=== PATIENT | female | born 1980 | race Caucasian/White ===

== ENCOUNTER 2024-12-02 22:42 | Emergency (ER) | payer MEDICAID ==
[~2024-12-02] VITALS: Ht 154.9 cm; Wt 76.4 kg
[2024-12-02 22:43] VITALS: BP 125/79; PULSE 86; O2SAT 98
--- NOTE | 2024-12-02 23:03 | Physician Documentation ---
History of Present Illness ~ Chief Complaint: Breast pain Stated Complaint: CHEST PAIN Time Seen by MD: 23:01 [facility] 43-year-old female with a history of diabetes presents to the emergency department reporting that she has had several days of left breast pain with redness. She denies chills or fevers, but does endorse nausea and body aches. She reports that although she is diabetic, she has been out of her medication, and is currently not taking anything for diabetes. Medication Reconciliation Allergies: Coded Allergies: No Known Allergies (Unverified , 12/02/24) Scheduled Naproxen (Naproxen), 1 TAB PO Q12H Sulfamethoxazole/Trimethoprim (Bactrim Ds Tablet), 1 TAB PO Q12H Review of Systems ROS As stated above in the HPI, otherwise all systems are reviewed and negative. Physical Exam Vital Signs: Temperature: 98.1, Source: Oral, Heart Rate: 86, Respiratory Rate: 17, BP: 125/79, Pulse Oximetry: 98, Weight: 76.360 General Appearance General: Alert, no apparent distress. HEENT: PERRL, EOMI, no injection, moist mucous membranes. Neck: Full range of motion. Respiratory: Lungs clear, no respiratory distress. Chest: No accessory muscle use. Breast: Left breast redness and abscess at 11 o'clock position. Nipple is retracted due to erythema/swelling to site. Cardiovascular: Regular rate and rhythm, no murmurs. Gastrointestinal: Soft, nontender, nondistended. Bowels sounds present. Extremities: Normal range of motion, no deformity. Neurologic: Oriented x4. Psychiatric: Normal mood and affect. Skin: Normal color, warm and dry. No edema, no ecchymosis. Procedures Procedures Left breast cleansed with betadine and then aspiration of abscess attempted as follows: 5 ml of 1% plain lidocaine injected around abscess area. #18 gauge needle utilized to attempt to aspirate but only blood returned. No purulence. Incision and drainage: Status post informed verbal consent patient was sterilely cleaned and draped. An additional 5 cc of lidocaine with epinephrine was used to anesthetize breast. Using a 11. Blade an incision and drainage was performed with 3 cc of purulent discharge. Cultures sent of the purulent discharge. Abscess was then de loculated and bandage placed. Total time of procedure 10 minutes Progress Results/Orders Results/Orders Orders - DOUGLAS WESLEY MD Culture Body Fluid Order (12/03/24 00:58) Cult (Aer) Routine C&S+Gram St (12/03/24 00:55) Completed Orders - DOUGLAS WESLEY MD Normal Saline 1000ml (Sodium Chloride 10 (12/03/24 01:20) Insulin Regular, Human (Humulin R 10 Uni (12/03/24 01:20) Medications Received in ER Medications (Trade) Dose Ordered Sig/Jo Route PRN Reason Start Time Stop Time Status Last Admin Dose Admin (Toradol inj. 30mg/ml) 30 mg ONCE ONCE IM 12/02/24 23:20 12/02/24 23:23 DC 12/02/24 23:40 30 MG (Zofran ODT tablet) 4 mg ONCE ONCE PO 12/02/24 23:20 12/02/24 23:23 DC 12/02/24 23:39 4 MG (Boostrix vaccine syringe) 0.5 ml ONCE ONCE IMVAC 12/02/24 23:35 12/02/24 23:36 DC 12/03/24 00:09 0.5 ML (Septra DS tab) 1 tab ONCE ONCE PO 12/02/24 23:50 12/02/24 23:51 DC 12/03/24 00:08 1 TAB ([place] 5/325mg tablet) 1 tab ONCE ONCE PO 12/03/24 00:05 12/03/24 00:06 DC 12/03/24 00:11 1 TAB Sodium Chloride 1,000 ml @ 1,000 mls/hr ONCE ONCE IV 12/03/24 01:20 12/03/24 02:19 DC 12/03/24 02:11 1,000 MLS/HR (HumuLIN R 10 units per 0.1 ML syringe) 10 units ONCE ONCE IV 12/03/24 01:20 12/03/24 01:21 DC 12/03/24 02:11 10 UNITS Vital Signs 12/02/24 12/02/24 12/03/24 12/03/24 22:43 23:40 00:11 01:03 Temp 98.1 98.1 Pulse 86 Resp 17 18 18 B/P (MAP) 125/79 Pulse Ox 98 Laboratory Tests Test 12/02/24 23:31 12/03/24 03:05 White Blood Count 12.2 H Red Blood Count 4.47 Hemoglobin 13.7 Hematocrit 39.5 Mean Corpuscular Volume 88.4 Mean Corpuscular Hemoglobin 30.6 Mean Corpuscular Hemoglobin Concent 34.6 Red Cell Distribution Width 13.2 Platelet Count 410 Mean Platelet Volume 8.0 Neutrophils (%) (Auto) 65.6 Lymphocytes (%) (Auto) 27.3 Monocytes (%) (Auto) 5.0 Eosinophils (%) (Auto) 1.3 Basophils (%) (Auto) 0.8 Neutrophils # (Auto) 8.0 H Lymphocytes # (Auto) 3.3 Monocytes # (Auto) 0.6 Eosinophils # (Auto) 0.2 Basophils # (Auto) 0.1 CBC Comment Sodium Level 131 L Potassium Level 4.0 Chloride Level 96 L Carbon Dioxide Level 27.2 Anion Gap 8 Blood Urea Nitrogen 15 Creatinine 0.70 Estimated GFR/1.73 m2 > 90 BUN/Creatinine Ratio 21.4 H Glucose Level 430 *H Lactic Acid Level 1.0 Calcium Level 8.5 Total Bilirubin 0.2 Aspartate Amino Transf (AST/SGOT) 46 H Alanine Aminotransferase (ALT/SGPT) 104 H Alkaline Phosphatase 266 H Total Protein 7.1 Albumin 3.2 L Globulin 3.9 Albumin/Globulin Ratio 0.8 L Procalcitonin < 0.05 Chemistry Comments Glucometer 164 H Microbiology Date/Time Source Procedure Growth Status 12/02/24 23:31 Blood Arm Right Blood Culture - Preliminary NEGATIVE (LESS THAN 24 HOURS) Resulted Medical Decision Making Findings Patient presented to the emergency room with chief complaint of breast abscess. Differentials include but are not limited to abscess, cellulitis, breast engorgement, hematoma therefore emergent labs ordered. Mild elevation of white blood cell count and noted hyperglycemia consistent with infectious process. Patient is status post incision and drainage along with initiation of IV antibiotics and improvement of patient's blood sugars. I believe she will do well on an outpatient basis. ER precautions discussed. Differential Dx:Considerations: Include: Breast abscess, Breast engorgement, Breast mass, Cancer, Cellulitis Departure Disposition: HOME / SELF CARE / HOMELESS Impression: Primary Impression: Breast abscess Condition: Stable Discharge Instructions: Abscess, Care After, Mastitis Additional Instructions: Return to the emergency room for worsening of symptoms Take the antibiotics as prescribed. Use the Naproxen as needed for pain. Referrals: NO PRIMARY CARE PROVIDER (PCP) Prescriptions Naproxen (Naproxen) 500 Mg Tablet 1 TAB PO Q12H, #20 TAB Prov: MALINA BARRIGA NP 12/02/24 Sulfamethoxazole/Trimethoprim (Bactrim Ds Tablet) 800 Mg-160 Mg Tablet 1 TAB PO Q12H for 7 Days, #14 TAB Prov: MALINA BARRIGA NP 12/02/24 Education Educated: Patient Educated regarding: diagnosis, treatment, prognosis, need for follow up Signature Scribe Signature: no scribe Attestation: The note accurately reflects work and decisions made by me.Douglas Wesley MD 12/03/24 00:56 The note accurately reflects work and decisions made by me.Malina Diaz NP 12/02/24 23:24 MALINA BARRIGA NP Dec 02, 2024 23:03 DOUGLAS WESLEY MD Dec 03, 2024 00:57
[2024-12-02] MEDS ORDERED: SULF1TAB49 PO (23:36)
[2024-12-02] MEDS ORDERED: NAPR-56 PO (23:36)
[2024-12-02 23:39] LABS: BASOPHILS # (AUTO) 0.1 X10'3 (0-0.2); BASOPHILS % (AUTO) 0.8 % (0-1); EOSINOPHILS # (AUTO) 0.2 X10'3 (0-0.9); EOSINOPHILS % (AUTO) 1.3 % (0-6); HEMATOCRIT 39.5 % (35.0-45.0); HEMOGLOBIN 13.7 g/dl (12.0-16.0); LYMPHOCYTES # (AUTO) 3.3 X10'3 (1.1-4.8); LYMPHOCYTES % (AUTO) 27.3 % (21-51); MEAN CORPUSCULAR HEMOGLOBIN 30.6 PG (27.0-31.0); MEAN CORPUSCULAR HGB CONC 34.6 g/dL (33.0-36.5); MEAN CORPUSCULAR VOLUME 88.4 FL (78-98); MONOCYTES # (AUTO) 0.6 X10'3 (0-0.9); NEUTROPHILS % (AUTO) 65.6 % (42-75); PLATELET COUNT 410 X10'3 (140-440); RED BLOOD COUNT 4.47 X10'6 (4.20-5.60); RED CELL DISTRIBUTION WIDTH 13.2 % (11.5-14.5); WHITE BLOOD COUNT 12.2 X10'3 (4.5-11.0)
[2024-12-02] MEDS: ondansetron 4mg rapidly disintigrating tab PO ONE (23:39)
[2024-12-02] MEDS: ketorolac trometh 30MG/ML vial 30 MG/ML VIAL IM ONE (23:40)
[2024-12-03] LABS: ALANINE AMINOTRANSFERASE 104 U/L (12-78); ALBUMIN 3.2 G/DL (3.4-5.0); ALBUMIN/GLOBULIN RATIO 0.8 (1.1-1.5); ALKALINE PHOSPHATASE 266 IU/L (46-116); ANION GAP 8 (8-16); ASPARTATE AMINO TRANSFERASE 46 U/L (10-37); BILIRUBIN,TOTAL 0.2 MG/DL (0.1-1.0); BLOOD UREA NITROGEN 15 MG/DL (7-18); BUN/CREATININE RATIO 21.4 (10.0-20.0); CALCIUM 8.5 MG/DL (8.5-10.1); CHLORIDE 96 MMOL/L (99-107); SODIUM 131 MMOL/L (135-145); TOTAL CARBON DIOXIDE 27.2 MMOL/L (24-32); TOTAL PROTEIN 7.1 G/DL (6.4-8.2); eCRCL 79 ML/MIN; eGFR > 90 ML/MIN
[2024-12-03] MEDS: LIDOcaine 1%/PF 5ML 10 MG/ML VIAL IJ ONE
[2024-12-03 00:04] LABS: GLUCOSE 430 MG/DL (70-104)
[2024-12-03] MEDS: sulfamethoxazole/trimethoprim DS (800/160mg) tablet PO ONE (00:08)
[2024-12-03] MEDS: TETanus/Pertussis (Acell)/Diphther VAC/PF (Tdap-Adult) 0.5ml syringe IMVAC ONE (00:09)
[2024-12-03 00:11] VITALS: RESP 18
[2024-12-03] MEDS: HYDROcodone/acetaminophen 5mg/325mg tablet PO ONE (00:11)
[2024-12-03] MEDS: LIDOcaine 1% W/epiNEPHrine 1:100,000 20ml vial SQ ONE (00:31)
[2024-12-03 01:03] VITALS: TEMP 98.1
[2024-12-03] MEDS: insulin regular, human 10 units/0.1 ml syringe IV ONE (02:11)
[2024-12-03] MEDS: normal saline 1000ml 1,000 ML IV ONE (02:11)
== END 2024-12-03 03:09 | disposition home or self-care (01) ==
LOC: ER 22:43
DX: N61.1 Abscess of the breast and nipple (principal); E11.9 Type 2 diabetes mellitus without complications; Z79.899 Other long term (current) drug therapy
CPT/HCPCS: 10060; 36415; 80053; 82948; 83605; 84145; 85025; 87040; 87070; 87077; 87186; 90471; 90715; 96361; 96372; 96374; 99284; A6407; J1815; J1885; J7030; 96360; A6258; A6449